=== PATIENT | male | born 1970 | race Caucasian/White ===

== ENCOUNTER → 2019-12-21 15:30 | Outpatient (CLI) | payer OTHER, SELFPAY ==
[2019-12-21 17:54] LABS: Absolute Lymphocyte Count 1.88 X10^3/uL (0.83-4.51); Absolute Neutrophil Count 10.7 X10^3/uL (2.0-7.7); Basophil# 0.03 X10^3/uL; Basophil% 0.2 % (0-1); Eosinophil# 0.04 X10^3/uL; Eosinophils% 0.3 % (0-5); Hematocrit 48.8 % (40-54); Hemoglobin 15.6 g/dL (13.0-16.5); Lymphocyte # 1.88 X10^3/ul (4.0); Lymphocyte % 13.9 % (19-41); Mean Corpuscular Hgb 29.1 pg (27.0-32.0); Mean Corpuscular Volume 90.9 fL (80-94); Mean Platelet Vol. 10.3 fl (6.2-12.0); Monocyte# 0.82 X10^3/uL; Monocyte% 6.1 % (0-10); NRBC Flagged by Analyzer 0 % (0-5); Neutrophil # 10.71 X10^3/uL (2.7-7.7); Neutrophil % 79.1 % (47-70); Platelet Count 340 K/mm3 (150-450); RBC Distribution Width CV 13.3 % (11.6-14.6); RBC Distribution Width SD 44.7 fl (35.1-43.9); Red Blood Count 5.37 M/mm3 (4.6-6.2); White Blood Count 13.5 K/mm3 (4.4-11.0)
[2019-12-21 18:56] LABS: Anion Gap 7 (5-15); BUN 24 mg/dL (7-18); BUN/Creat Ratio 19.7 RATIO (10-20); CRP < 2.90 mg/L (0.0-3.0); Calcium,Total 8.8 mg/dL (8.5-10.1); Chloride 107 mmol/L (98-107); Creatinine, Serum 1.22 mg/dL (0.70-1.30); EST Glomerular Filtration Rate 68 mL/min (>60); Est Glom Filt Rate - Afr Amer 82 mL/min (>60); Glucose 98 mg/dL (74-106); Potassium 3.6 mmol/L (3.5-5.1); Sodium Level 141 mmol/L (136-145)
== END ==
PROVIDERS: PCP Family Medicine; Referring Provider Family Medicine; Visit Provider Family Medicine
DX: I10 Essential (primary) hypertension (principal); R59.0 Localized enlarged lymph nodes
CPT/HCPCS: 36415; 80048; 85025; 86140

== ENCOUNTER → 2020-01-20 15:38 | Outpatient (CLI) | payer OTHER, SELFPAY | PROVIDERS: PCP Family Medicine; Visit Provider Otolaryngology | DX: Z11.59 Encounter for screening for other viral diseases (principal) | CPT/HCPCS: 87635; C9803; U0003 ==

== ENCOUNTER → 2020-01-20 15:49 | Outpatient (CLI) | payer OTHER, SELFPAY ==
[2020-01-20 16:20] LABS: Hematocrit 46.4 % (40-54); Hemoglobin 15.3 g/dL (13.0-16.5); Mean Corpuscular Hgb 29.7 pg (27.0-32.0); Mean Corpuscular Volume 89.9 fL (80-94); Mean Platelet Vol. 9.3 fl (6.2-12.0); Platelet Count 339 K/mm3 (150-450); RBC Distribution Width CV 13.3 % (11.6-14.6); RBC Distribution Width SD 43.8 fl (35.1-43.9); Red Blood Count 5.16 M/mm3 (4.6-6.2)
[2020-01-20 16:42] LABS: Anion Gap 4 (5-15); BUN 23 mg/dL (7-18); BUN/Creat Ratio 21.3 RATIO (10-20); Calcium,Total 9.2 mg/dL (8.5-10.1); Chloride 107 mmol/L (98-107); Creatinine, Serum 1.08 mg/dL (0.70-1.30); EST Glomerular Filtration Rate 78 mL/min (>60); Est Glom Filt Rate - Afr Amer 94 mL/min (>60); Glucose 84 mg/dL (74-106); Potassium 3.8 mmol/L (3.5-5.1); Sodium Level 140 mmol/L (136-145)
== END ==
PROVIDERS: PCP Family Medicine; Visit Provider Otolaryngology
DX: Z01.818 Encounter for other preprocedural examination (principal)
CPT/HCPCS: 36415; 80048; 85027

== ENCOUNTER → 2020-01-25 15:34 | Outpatient (CLI) | payer OTHER, SELFPAY ==
--- NOTE | 2020-01-25 | IMM_PTH ---
PATIENT: TAHMINA LEDESMA Jr. LOC: [facility] U#:[id number] AGE/SX: 54/M ROOM: RE01/25/[address]: Dr. Pawan Zhang MD : 1970 BED: DIS: SPEC #: [id number] RECD: 01/27/20 13:22 STATUS: ORACIO REQ #: [id number] EDMUNDO: 01/25/20 00:[address]: Pawan Zhang DEPT: IMMUNOHISTOCHEMISTRY RECD BY: Galilea Rubalcava ENTERED: 01/27/20 13:24 SP TYPE: IMMUNO OTHR DR: Dr. Chad Farfan MD Tissues: Nasopharynx, NOS Procedures: NAPSIN A (add) CD20 (add) CD3 (add) CD45 (add) CD5 (add) CD79A (add) CK14 (add) CK20 (add) CK5-6 (add) CK7 (add) CK8 (add) OROZCO-2 (add) KI-67 (add) P16 (add) P53 (add) TTF1 (add) Pankeratin (initial) P40 (add) CD44 (add) PSAP (add) S-100 (add) PHYSICIAN & [place] [id number] SPECIMEN INFORMATION: Tissue Source: B - Nasopharyngeal mass Clinical Info: Nasopharyngeal mass Specimen Number: [id number] CPT code: 78809, 77948 x20 METHODOLOGY: Deparaffinized sections of prefer/formalin-fixed tissue or PAP/DQ stained slides are incubated with monoclonal/polyclonal antibodies/oligonucleotide probes. Localization is made via biotin free immunoperoxidase method. Appropriate controls are performed and reacted as expected. Results on target cell population are indicated in the following table: RESULTS: ANTIBODY / CLONE RESULT Block B AE1-3 (AE1/AE3/PCK26) positive CK7 (OV-TL12/30) negative CK8 (44nlylQ77) positive, dim CK20 (KS20.8) negative OROZCO-2 (SP21) positive CD3 (PS1) negative CD5 (SP10) negative CD20 (L26) negative CD45 (RP2/18) negative CD79a (11E3) negative S-100 (4C4.9) negative TTF-1 (8G7G3/1) negative Napsin A (Rabbit Polyclonal) negative PSAP (PASE/4LJ) negative anti-CD44 (SP37) negative CK5-6 (D5 & 1684) positive CK14 (LL002) negative P40 (BC28) negative P16 (E6H4) negative P53 (DO-7) positive, 10%, dim Ki-67 (30-9) positive, 85% These tests were developed and their performance characteristics determined by [facility]. They may not have been cleared or approved by the U.S. Food and Drug Administration. The FDA has determined that such clearance or approval is not necessary. The above immunohistochemical/dualISH markers are ordered and reviewed by the Pathologist. 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 AM:vin 01/28/20 Case has been reviewed in consultation with Dr. Erickson who concurs with the above diagnosis. IDC:SJ
--- NOTE | 2020-01-25 14:02 | MASS_PTH ---
PATIENT: TAHMINA LEDESMA Jr. LOC: [facility] U#:[id number] AGE/SX: 54/M ROOM: RE01/25/[address]: Dr. Pawan Zhang MD : 1970 BED: DIS: SPEC #: [id number] RECD: 01/25/20 15:00 STATUS: ORACIO CHRISTINE #: [id number] EDMUNDO: 01/25/20 14:[address]: Pawan Zhang DEPT: SURGICAL PATHOLOGY RECD BY: Rey Sue ENTERED: 01/26/20 10:05 SP TYPE: Mass OTHR DR: Dr. Chad Farfan MD [facility] Tissues: A - Nasopharynx, NOS B - Nasopharynx, NOS Procedures: Special Stain Group II Surgery Specimen Level IV Imprint (control) HEADER OPERATION: Left myringotomy with tube, nasopharyngeal biopsy PRE-OP DIAGNOSIS: Chronic serous otitis media left ear; nasopharyngeal mass TISSUE SUBMITTED: A - Nasopharyngeal mass (sent for flow), B - Nasopharyngeal mass MICROSCOPIC DIAGNOSIS A. Nasopharyngeal mass, biopsy (crush prep): Positive for malignant cells, non-small cell carcinoma with squamoid features in the background of polytypic lymphocytes. See comment. B. Nasopharyngeal mass, biopsy: Invasive poorly differentiated, nonkeratinizing squamous cell carcinoma. See comment. AM:vin 01/27/20 COMMENT A. The remainder of the specimen is sent for flow cytometry analysis. B. Immunohistochemistry ([id number]) supports the above diagnosis. Case has been reviewed in consultation with Dr. Erickson who concurs with the above diagnosis. IDC:SJ MICROSCOPIC DESCRIPTION Slides are reviewed. GROSS DESCRIPTION Received in fixative is one container labeled with the patient's name and designated nasopharyngeal mass. The specimen consists of multiple irregular fragments of pink-stinson soft tissue that in aggregate measure 2.2 x 1.3 x 0.2 cm. A portion of the tissue is submitted for flow cytometry analysis. Sound Designer touch preps are prepared. The remainder of the specimen is submitted in its entirety in one cassette. / AM:vin 01/26/20 TC:0 CPT: 04299, 24721 x2 ADDENDUM ADDENDUM ADDENDUM ADDENDUM ADDENDUM ADDENDUM ADDENDUM 01/29/2020 11:12 ADDENDUM 01/29/2020 11:12 ADDENDUM 01/29/2020 11:12 ADDENDUM 01/29/2020 11:12 ADDENDUM 01/29/2020 11:12 FLOW CYTOMETRY ANALYSIS REPORT FROM [facility] INTERPRETATION: (Specimen A) In the sample analyzed, there is no evidence of a B-cell or T-cell nonHodgkin lymphoma. Please see complete report in e-chart or EMR for further details
== END ==
PROVIDERS: PCP Family Medicine; Referring Provider Otolaryngology; Visit Provider Otolaryngology
DX: H66.92 Otitis media, unspecified, left ear (principal)
CPT/HCPCS: 88300; 88305; 88313; 88341; 88342

== ENCOUNTER → 2020-02-08 13:10 | Outpatient (CLI) | payer OTHER, SELFPAY ==
--- NOTE | 2020-02-08 13:12 | CT_ITS ---
HISTORY: LEFT NASOPHARYNGEAL CANCER, BIOPSY 2 WKS AGO TECHNIQUE: CT images of the neck were obtained with IV contrast. A radiation dose optimization technique was used for this scan. IV Contrast dosage and agent: 75 mL Isovue-370 Number of images including paperwork: [id number] COMPARISON: None FINDINGS: NASOPHARYNX: Lobulated nasopharyngeal mass on the left side measuring approximately 3.6 x 2.3 cm on series 2 image 85. SUPRAHYOID NECK: Unremarkable oropharynx, oral cavity, parapharyngeal space, and retropharyngeal space. INFRAHYOID NECK: Unremarkable larynx, hypopharynx, and supraglottis. THYROID AND SALIVARY GLANDS: Normal. LYMPH NODES: Multiple enlarged left posterior triangle nodes, largest measuring 2.5 x 1.9 cm on series 2 image 61 and 2.7 x 1.6 cm on series 2 image 69. Small right cervical nodes are not pathologically enlarged by size criteria. VASCULAR STRUCTURES: Unremarkable. ORBITS: Unremarkable. PARANASAL SINUSES: No air fluid level. MASTOID AIR CELLS: Left mastoid effusion. BONES: Degenerative changes. THORACIC INLET: Clear lung apices. CT/Soft Tissue Neck WITH Contrast IMPRESSION: Left nasopharyngeal mass compatible with the provided history of nasopharyngeal carcinoma. Left neck metastatic adenopathy. Individualized dose optimization techniques were used for this CT. at 0641 Reported and signed by: Iraida Barnhart MD Electronically Signed: Iraida Barnhart MD at 6:41 EDT Tel , Service support ,
== END ==
PROVIDERS: PCP Family Medicine; Referring Provider Otolaryngology; Visit Provider Otolaryngology
DX: C11.9 Malignant neoplasm of nasopharynx, unspecified (principal)
CPT/HCPCS: 70491; Q9967

== ENCOUNTER → 2020-02-13 06:54 | Outpatient (CLI) | payer OTHER, SELFPAY ==
--- NOTE | 2020-02-13 07:30 | PET_ITS ---
EXAMINATION: FDG PET-CT INDICATIONS: A 49-year-old male with history of head and neck carcinoma presenting for initial staging examination. COMPARISON EXAMINATION: CT of the neck report dated 02/08/2020 INDEX LESION SIZE SUV INTERPRETATION Midline-L nasopharynx 31.6 x 20.4-mm (frame 273) 10.1 Fulfills quantitative criteria for viable neoplasm Left lateral neck level IIB-III 20.5 x 27.3-mm (largest) (frame 259) 11.0 (max) Fulfills quantitative criteria for viable neoplasm TECHNIQUE: Following the intravenous administration of 14.5 mCi of F-18 deoxyglucose via the left antecubital fossa, multiplanar image acquisitions of the neck, chest, abdomen and pelvis to level of mid thigh, obtained at one hour post radiopharmaceutical administration contemporaneously interpreted with the current CT of the neck, chest, abdomen and pelvis, to level of mid thigh, dated 02/13/[address] of the neck report dated 02/08/2020 reveals: BLOOD GLUCOSE LEVEL:?? 95 mg/dl?HEIGHT:?68 inches?WEIGHT: 250 lbs. FINDINGS: 1. There is an increase in radiopharmaceutical concentration defined in the nasopharynx in the midline-to the left of the midline. The calculated maximal standard uptake value is 10.1. The maximal axial diameter of the metabolic, morphologic abnormality on review of CT of the neck dated 02/13/2020 is 31.6-mm (transverse) x 20.4-mm (AP). 2. Facilitated FDG distribution is manifest in the left lateral neck involving level IIB-III in three individual nodular presentations. The calculated maximal standard uptake value is 11.0. The maximal axial diameter of the corresponding metabolic, morphologic abnormality on review of CT of the neck dated 02/13/2020 is 20.5-mm (transverse) x 27.3-mm (AP). 3. Normal physiologic distribution of the radiopharmaceutical is apparent in the hepatic (2.6) and splenic parenchyma, right renal unit, bladder and visualized intestinal tract. The visualized portion of the cerebral cortex demonstrate symmetric and preserved glucose metabolism. Diffuse radiopharmaceutical concentration is noted in all four quadrants of the abdomen and pelvis. Prominent radiopharmaceutical concentration is observed in the distribution of the left ventricular myocardium commensurate with the pattern associated with failure to fast-fed state. (Frandy and Melissa, Journal of Nuclear Medicine Technology 31:3, 2003). Pertinent CT findings are as follows: CHEST: There is atherosclerotic calcification defined in the thoracic aorta without evidence of dilatation-aneurysm formation. Coronary arterial calcification is observed. Bilateral axillary soft tissue densities with fatty hilus are ametabolic. There are no parenchymal densities-nodules defined in the right and left hemithorax with discernible quantitatively significant increased FDG concentration. A linear density defined in the left lower anterior lung-left upper lobe is ametabolic. ABDOMEN AND PELVIS: There is atherosclerotic calcification defined in the abdominal aorta without evidence of dilatation-aneurysm formation. Pelvic arterial calcification is observed. The left kidney appears definitively atrophic with calcification. A fat containing paraumbilical hernia is noted. Bilateral fat containing inguinal hernias are defined. Dystrophic calcification is manifest within the prostate gland without evidence of increased tracer uptake. SKELETAL: Degenerative changes are noted in the cervical, thoracic and lumbar spine. PET/PET/CT Tumor Base -Thigh Init IMPRESSION: 1. ABNORMAL EXAMINATION INDICATIVE OF [id number] VIABLE NEOPLASM. 2. Increased FDG distribution noted in the nasopharynx fulfills quantitative criteria for viable neoplasia. 3. Enhanced fluorine labeled glucose uptake discerned in the left lateral neck involving level IIB-III fulfills quantitative criteria for viable metastatic disease. 4. No other quantitatively significant hypermetabolic abnormalities are noted. There is no definitive scintigraphic evidence of distant metastatic disease. Electronic Signature Angel Montano D.O. Accurate Quantification of SUVs for this report are calculated using the exclusive [employer]. Electronically Signed: Angel Montano DO at 22:48 EDT Tel , Service support ,
== END ==
PROVIDERS: PCP Family Medicine; Referring Provider Otolaryngology; Visit Provider Otolaryngology
DX: C11.2 Malignant neoplasm of lateral wall of nasopharynx (principal)
CPT/HCPCS: 78815; A9552

== ENCOUNTER → 2020-03-04 09:41 | Outpatient (CLI) | payer OTHER, SELFPAY ==
--- NOTE | 2020-03-04 09:49 | MRI_ITS ---
STUDY: MRI BRAIN WITH AND WITHOUT CONTRAST REASON FOR EXAM: Male, 49 years old. MALIGNANT NEOPLASM OF NASOPHARYNX, no neuro complaints, staging TECHNIQUE: Standardized multiplanar fat and water weighted pulse sequences were obtained. IV 23CC DOTAREM was administered for the contrast portion of the examination. COMPARISON: None. FINDINGS: Normal size of the ventricles and extra-axial spaces for the patient''s age. Normal white matter tracts of the supratentorial brain. There is no evidence for recent intracranial ischemia or other cause of cytotoxic edema on diffusion weighted imaging (DWI). Normal T2* images of the brain without demonstrated susceptibility artifact. There is no demonstrated hemosiderin stain. Normal bilateral basal ganglia. Normal thalami. There is no extra-axial fluid accumulation. Normal flow voids within the major intracranial circulation suggesting patency by spin echo criteria. Normal venous enhancement. There is no enhancing intra-axial or extra-axial abnormality. Normal sella turcica, pituitary gland, infundibular stalk, optic chiasm and hypothalamus. Normal tectal plate and pineal gland. Normal midbrain, ridge and medulla. Normal cerebellum. Normal basal cisterns. There is moderate chronic otomastoiditis of the bilateral temporal bones. Normal bilateral internal auditory canals. No demonstrated orbital abnormality, within the constraints of a routine brain study. Normal visualized paranasal sinuses. Normal calvarium and skull base. 1.5 x 2.5 cm solidly enhancing mass of the left posterior nasopharynx consistent with known head and neck cancer. Normal visualized upper cervical spine. MRI/Brain W/WO Contrast IMPRESSION: Normal unenhanced and enhanced MRI of the brain. No MR evidence metastatic disease. Electronically Signed: Angel Daley MD at 14:58 EST Tel , Service support ,
== END ==
PROVIDERS: PCP Family Medicine; Referring Provider Internal Medicine Hematology & Oncology; Visit Provider Internal Medicine Hematology & Oncology
DX: C11.9 Malignant neoplasm of nasopharynx, unspecified (principal)
CPT/HCPCS: 70553; A9575

== ENCOUNTER 2020-06-06 10:15 | Emergency (ER) | payer OTHER, SELFPAY ==
[2020-06-06 10:15] VITALS: BP 110/92; PULSE 115; RESP 18; TEMP 36.6; O2SAT 98; BMI 29.5
--- NOTE | 2020-06-06 10:29 | EKG12_ITS ---
Test Reason : DIZZINESS Blood Pressure : / mmHG Vent. Rate : 104 BPM Atrial Rate : 104 BPM P-R Int : 130 ms QRS Dur : 102 ms QT Int : 340 ms P-R-T Axes : 059 -11 121 degrees QTc Int : 447 ms Sinus tachycardia T wave abnormality, consider lateral ischemia Abnormal ECG Confirmed by MARILYN HACKETT, LORA ([id number]), medical transcription editor MERLE PATINO ([id number]) on 06/09/2020 9:25:36 AM Referred By: AN Confirmed By:LORA SANDERS MD
--- NOTE | 2020-06-06 10:31 | ED.VIS.GEN ---
History of Present Illness Chief Complaint: Syncope Informant: Patient Narrative: 49-year-old male presents with concern for weakness. Patient recently completed a course of chemotherapy for nasopharyngeal cancer 4 weeks ago. Patient was diagnosed with coronavirus 1 week ago. Patient states that he had 3 episodes of syncope yesterday. Did describe him as bending over and then standing up and having syncope. States he becomes profoundly short of breath anytime he exerts himself. Denies any chest pain, nausea, vomiting, abdominal pain. 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 Denies: Chills, Fever, Sweats Eyes: Denies: Visual changes - bilaterally, Diplopia ENT: Denies: Rhinorrhea, Sore throat Cardiovascular: Denies: Chest pain, Palpitations Respiratory: Denies: Dyspnea, Cough, Dyspnea on exertion Gastrointestinal: Denies: Abdominal pain, Nausea, Vomiting, Diarrhea, Melena, Hematochezia Genitourinary: Denies: Dysuria, Hematuria, Frequency Musculoskeletal: Denies: Back pain, Extremity Pain Skin: Denies: Rash, Wounds Neurological: Denies: Headache, Weakness, Numbness Physical Exam Vital Signs/Narrative: Vital Signs Temp Pulse Resp BP Pulse Ox 06/06/20 10:15 98 F 115 H 18 110/92 H 98 General: Well nourished, Well developed, No Acute Distress Head: Normocephalic, Atraumatic Eyes: Perrl, EOMI ENT: Moist mucous membranes, No rhinorrhea Neck: Supple, Nontender Cardiovascular: Regular rate, Regular rhythm, No murmurs Respiratory: No distress, CTA bilaterally, Chest nontender Abdomen: Soft, Nontender, Nondistended, Normal bowel sounds Back: Nontender, Normal Inspection Extremities: Nontender, No edema Skin: Normal color, No rash Neurological: Alert, Oriented x3, Cranial nerves II-XII grossly intact, Normal Strength, Normal Sensation Psychological: Normal affect, Normal Mood Diagnostic/Tx/Re-eval Chest X-Ray - ED: 1 View, Read by ED Physician, Read by Radiologist, Normal Clinical Impression(s) from Imaging Studies Chest X-Ray 06/06/20 10:58 IMPRESSION: Hyperinflation. The lungs are clear. Electronically Signed: Trevor Tyson MD at 11:17 EST , Service support , Chest CTA 06/06/20 11:41 IMPRESSION: No evidence of pulmonary embolism. Mild degree of groundglass appearance in the right upper lobe as well as in the lower globes and the preferential lateral distribution. Electronically Signed: Trevor Tyson MD at 12:30 EST , Service support , Laboratory Data 06/06/20 06/06/20 06/06/20 11:13 11:13 11:13 WBC 9.7 RBC 3.84 L Hgb 11.8 L Hct 36.7 L MCV 95.6 H MCH 30.7 MCHC 32.2 RDW Std Deviation 71.3 H RDW Coeff of Luis 21.0 H Plt Count 230 MPV 10.3 Neut % (Auto) Not Reportable Absolute Neuts (auto) 8.8 H Absolute Lymphs (auto) 0.29 L Total Counted 100 Neutrophils % (Manual) 89 H Band Neutrophils % 1 Lymphocytes % (Manual) 3 L Monocytes % (Manual) 6 Metamyelocytes % 1 Diff Path Review May foll Platelet Estimate ADEQUATE Polychromasia RARE Hypochromasia RARE D-Dimer Quant (PE/DVT) 0.77 H* Sodium 138 Potassium 3.9 Chloride 105 Carbon Dioxide 26.0 Anion Gap 7 BUN 24 H Creatinine 1.27 Estim Creat Clear Calc 71.91 Est GFR (MDRD) Af Amer 78 Est GFR (MDRD) Non-Af 64 BUN/Creatinine Ratio 18.9 Glucose 96 Lactic Acid Calcium 8.9 Total Bilirubin 0.30 AST 42 H ALT 71 H Alkaline Phosphatase 132 H Troponin I < 0.015 Total Protein 7.0 Albumin 3.2 Globulin 3.8 Albumin/Globulin Ratio 0.8 L 06/06/20 11:34 WBC RBC Hgb Hct MCV MCH MCHC RDW Std Deviation RDW Coeff of Luis Plt Count MPV Neut % (Auto) Absolute Neuts (auto) Absolute Lymphs (auto) Total Counted Neutrophils % (Manual) Band Neutrophils % Lymphocytes % (Manual) Monocytes % (Manual) Metamyelocytes % Diff Path Review Platelet Estimate Polychromasia Hypochromasia D-Dimer Quant (PE/DVT) Sodium Potassium Chloride Carbon Dioxide Anion Gap BUN Creatinine Estim Creat Clear Calc Est GFR (MDRD) Af Amer Est GFR (MDRD) Non-Af BUN/Creatinine Ratio Glucose Lactic Acid 1.5 Calcium Total Bilirubin AST ALT Alkaline Phosphatase Troponin I Total Protein Albumin Globulin Albumin/Globulin Ratio - Rhythm Strip Rhythm Strip: Sinus Tach Rate: 104 Ectopy: None - EKG Initial EKG Interpretation: Sinus Tachycardia - Sinus tachycardia 104 bpm. [place] interval 130 ms. QTC of [address] changes. No evidence of acute ischemia. - Medical Decision Making Patient appears well and nontoxic. Chest x-ray interpreted by myself shows no significant cardiomegaly or infiltrate. Radiology concurs. Patient has a slightly elevated D-dimer. CTA of the chest was done which shows no pulmonary embolism. Patient is feeling improved after fluid bolus. Patient has no focal neurologic deficit. Patient symptoms are consistent with orthostatic hypotension given he is arising from a seated position or when he bends over he feels like he is going to pass out. Patient was advised on continued p.o. hydration and follow-up with his primary care. Asked to return for worsening shortness of breath. Patient agreeable and discharged home in stable condition. Impression: 1. COVID-19 2. Syncope 3. Volume depletion ED Disposition - Plan for ED Patient: Disposition: Home or Assisted Living Instructions: ED Hypotension, Orthostatic, ED Fainting, Uncertain Cause Referrals: Chad Farfan MD [Primary Care Provider] - 2 Days
--- NOTE | 2020-06-06 10:34 | NURSING ---
NO OLD EKGS
--- NOTE | 2020-06-06 10:58 | RAD_ITS ---
STUDY: X-RAY CHEST REASON FOR EXAM: Male, 49 years old. PT IS COVID POSITIVE. LETHARGIC AND SOB. CURRENTLY RECEIVING CHEMO TREATMENTS. TECHNIQUE: Single AP portable view of the chest. COMPARISON: None. FINDINGS: EKG electrodes are seen. Hyperinflation. The lungs are clear. There is no demonstrated pleural abnormality. Normal size heart. Normal mediastinum and trini. Normal visualized pulmonary arteries. Normal visualized aortic arch and descending thoracic aorta. There are diffuse degenerative changes of the visualized thoracic spine. Normal visualized ribs, clavicles, and shoulders. There is no demonstrated abnormality of the visualized soft tissue structures of the upper abdomen. RAD/Chest 1 View (Portable) IMPRESSION: Hyperinflation. The lungs are clear. Electronically Signed: Trevor Tyson MD at 11:17 EST , Service support ,
[2020-06-06 11:12] VITALS: BP 133/95; PULSE 91; PULSE 95; RESP 17; RESP 19; TEMP 36.7; O2SAT 96; O2SAT 99
[2020-06-06 11:27] LABS: Hematocrit 36.7 % (40-54); Hemoglobin 11.8 g/dL (13.0-16.5); Mean Corp Hgb Conc 32.2 g/dL (32-36); Mean Corpuscular Hgb 30.7 pg (27.0-32.0); Mean Corpuscular Volume 95.6 fL (80-94); Mean Platelet Vol. 10.3 fl (6.2-12.0); POSITIVE COUNT YES; POSITIVE DIFFERENTIAL YES; POSITIVE MORPHOLOGY YES; Platelet Count 230 K/mm3 (150-450); RBC Distribution Width SD 71.3 fl (35.1-43.9); Red Blood Count 3.84 M/mm3 (4.6-6.2); White Blood Count 9.7 K/mm3 (4.4-11.0)
[2020-06-06 11:28] LABS: Differential Indicated MANUAL DIFF
[2020-06-06 11:37] LABS: D-Dimer Quantitative (DVT/PE) 0.77 FEU/ug/m (0.27-0.49)
--- NOTE | 2020-06-06 11:37 | ED.RN ---
D-dimer 0.77. MD notified.
[2020-06-06 11:39] VITALS: BP 133/95; BP 137/95; BP 143/103; PULSE 105; PULSE 109; PULSE 90
--- NOTE | 2020-06-06 11:41 | CT_ITS ---
STUDY: CTA CHEST REASON FOR EXAM: Male, 49 years old. SYNCOPE, COVID+ RADIATION DOSAGE (If Supplied By Facility): CTDIvol = ( 12.69 ) mGy, DLP = ( 414.97 ) mGycm TECHNIQUE: The examination was performed with the intravenous administration of IV 100mL Isovue-370. Post-processing of the angiographic images was performed, with multiplanar reformation and 3D reconstruction. Individualized dose optimization techniques were used for this CT. COMPARISON: Comparison is made with prior chest radiograph done earlier today. FINDINGS: Normal enhancement of the main pulmonary artery and right and left pulmonary arteries. Normal enhancement of the bilateral peripheral pulmonary arteries. There is no demonstrated pulmonary embolism. Normal thoracic aorta and visualized great vessels. There is no demonstrated aortic dissection. Normal heart and pericardium. Normal mediastinum. Normal hilar regions. Normal visualized trachea and bronchi. The lungs are well expanded. Minimal degree of focal areas of a groundglass appearance in the right lung apex as well as both bases. This is in a peripheral distribution. Normal pleura. Normal chest wall structures. Normal osseous structures. Normal visualized upper abdomen. CT/CTA Chest W/WO Contrast IMPRESSION: No evidence of pulmonary embolism. Mild degree of groundglass appearance in the right upper lobe as well as in the lower globes and the preferential lateral distribution. Electronically Signed: Trevor Tyson MD at 12:30 EST , Service support ,
[2020-06-06 11:43] LABS: ALB/GLOB Ratio 0.8 RATIO (0.9-2.4); AST(SGOT) 42 U/L (15-37); Alanine Aminotransfer ALT/SGPT 71 U/L (16-61); Albumin, Serum 3.2 g/dL (3.2-5.0); Alkaline Phosphatase 132 U/L (45-117); Anion Gap 7 (5-15); BUN 24 mg/dL (7-18); BUN/Creat Ratio 18.9 RATIO (10-20); Calcium,Total 8.9 mg/dL (8.5-10.1); Chloride 105 mmol/L (98-107); Creatinine, Serum 1.27 mg/dL (0.70-1.30); EST Glomerular Filtration Rate 64 mL/min (>60); Est Glom Filt Rate - Afr Amer 78 mL/min (>60); Estimated Creatinine Clearance 71.91 ml/min; Globulin 3.8 g/dL (2.2-4.2); Glucose 96 mg/dL (74-106); Potassium 3.9 mmol/L (3.5-5.1); Sodium Level 138 mmol/L (136-145)
[2020-06-06 11:47] LABS: Hypochromasia RARE; Lymphocyte 3 % (19-41); Metamyelocyte 1 % (0-1); Monocyte 6 % (0-10); Neutrophil-Band 1 % (0-5); Neutrophil-Segmented 89 % (47-70); Platelet Estimate ADEQUATE (ADEQ); Polychromasia RARE; Total Cells Counted 100 (MANUAL DIFF)
[2020-06-06 11:48] LABS: Absolute Lymphocyte Count 0.29 X10^3/uL (0.83-4.51); Absolute Neutrophil Count 8.8 X10^3/uL (2.0-7.7)
[2020-06-06 12:27] LABS: Lactic Acid 1.5 mmol/L (0.4-1.9)
[2020-06-06] MEDS: 0.9% Normal Saline 1,000 ML 999 ML IV (12:31)
[2020-06-06 13:47] VITALS: BP 137/105; PULSE 79; PULSE 94; RESP 16; RESP 18; TEMP 36.6; O2SAT 100; O2SAT 99
[2020-06-07 12:52] LABS: Pathologist Review Reviewed
== END 2020-06-06 13:55 | disposition home or self-care (01) ==
PROVIDERS: Emergency Provider Emergency Medicine; PCP Family Medicine
DX: U07.1 COVID-19 (principal); R55 Syncope and collapse; E86.9 Volume depletion, unspecified; Z87.891 Personal history of nicotine dependence
CPT/HCPCS: 71045; 71275; 80053; 83605; 84484; 85025; 85379; 87040; 93005; 99285; J7030; Q9967; A4216

== ENCOUNTER 2020-07-01 09:13 | Day surgery (SDC) | payer OTHER, SELFPAY ==
[2020-06-29 15:52] VITALS: BMI 30.8
[2020-07-01] VITALS (9 sets, daily range): BP systolic 113–129; BP diastolic 83–98; PULSE 86–99; RESP 16–20; TEMP 36.6–37.9; O2SAT 96–99; BMI 30.7
[2020-07-01] MEDS: Lactated Ringers 1,000 ML 100 ML IV (10:30)
[2020-07-01] MEDS: Cefazolin 2 GM in 0.9% Normal Saline 100 ML IV (11:51)
[2020-07-01] MEDS: Lidocaine 1% (20 ml mdv) 20 ML Vial (12:19)
[2020-07-01] MEDS: Bupivacaine Mpf 0.5% 30 ML VIAL (12:19)
--- NOTE | 2020-07-01 12:33 | PCM.DC.POR ---
Discharge Diet: No Restrictions - Pain medication may cause nausea. You should typically eat light foods as you take your pain medication. Discharge Activity: May Shower - with the bandage in place 1-2 days after surgery. DO NOT SHOWER WHEN YOUR PORT IS ACCESSED. Additional Activity Instructions:: May not drive, work with heavy equipment, or sign legal documents for [address] if you are no longer taking narcotic pain medications. You may drive when you are no longer taking pain medications. Additional Dressing/Incision Instructions:: Leave the bandage on for 2-3 days. When you remove the bandage, leave the steri-strips intact until they fall off. Allergies/Adverse Reactions: Allergies No Known Allergies Allergy (Verified 07/01/20 10:35) Medications to take at Discharge Amlodipine Besylate [Norvasc] 5 mg PO QHS 06/28/20 Hydroxyzine HCl 50 mg PO QHS 06/28/20 Indapamide 1.25 mg PO DAILY 06/28/20 Irbesartan [Avapro] 300 mg PO QHS 06/28/20 Multivitamin with Minerals [Multiple Vitamin] 1 ea PO DAILY 06/28/20 potassium chloride 10 mEq tablet,extended release(part/cryst) 10 meq PO BID tab 06/29/20 tadalafil 10 mg tablet 10 mg PO DAILY PRN tab 06/29/20 Oxycodone HCl/Acetaminophen [Percocet 5/325] 1 - 2 tablet PO Q4H PRN PRN 6 Days #30 tablet 07/01/20 The following prescriptions were given: Oxycodone HCl/Acetaminophen [Percocet 5/325] 1 - 2 tablet PO Q4H PRN PRN 6 Days #30 tablet PRN Reason: Pain Transmission Status: Received by RAPHAEL MANZANARES-[address] [facility] Primary Care Physician: Chad Farfan MD [Primary Care Provider] - Test Results: Test results from this visit will be discussed in further detail at your follow-up appointment, if applicable. Please Follow Up With: Annalisa Quan - [phone] When: Please plan to follow up in 7 days in the office.
--- NOTE | 2020-07-01 12:35 | RAD_ITS ---
STUDY: X-RAY CHEST REASON FOR EXAM: Male, 49 years old. Line TECHNIQUE: Single AP portable view of the chest. COMPARISON: Comparison is made with prior study 06/06/2020. FINDINGS: A right-sided leonora catheter has been placed. The tip is in the midportion of the superior vena cava. The lungs are clear and expanded. Scattered calcified granulomas. There is no demonstrated pleural abnormality. Normal size heart. Normal mediastinum and trini. Normal visualized pulmonary arteries. Normal visualized aortic arch and descending thoracic aorta. There are diffuse degenerative changes of the visualized thoracic spine. Normal visualized ribs, clavicles, and shoulders. There is no demonstrated abnormality of the visualized soft tissue structures of the upper abdomen. RAD/Chest 1 View (Portable) IMPRESSION: The tip of the right portacatheter is in the midportion of the superior vena cava. Electronically Signed: Trevor Tyson MD at 12:55 EST , Service support ,
--- NOTE | 2020-07-01 12:35 | PCM.OPRPT ---
Problem List (1) Vascular catheter fitting or adjustment Status: Acute Report of Operation Date of Procedure: 07/01/20 Pre-Operative Diagnosis: Vascular fitting and adjustment Post-Operative Diagnosis: Same Surgery/Procedure Performed:: Placement of a right internal jugular Port-A-Cath Type of Anesthesia:: Local MAC Anesthesiologist: Chad Cano Estimated Blood Loss (mL): < 25 cc Fluids Replaced: 500 cc lr Description of Procedure: Patient was brought into the operating room. Placed in the supine position. Bed was turned down I ultrasound the neck to identify the internal jugular vein. I marked the neck and chest appropriately. The neck and chest were then sterilely prepped and draped in usual fashion. Local was injected into the neck. Seldinger's technique was used to gain access to the internal jugular vein guidewire was placed over the needle the needle was removed fluoroscopy was used to confirm proper placement. I injected local into the chest made an incision created a pocket for the port with use of electrocautery. Made a skin incision in the neck place the dilator and sheath over the guidewire removing the dilator and guidewire. Placed a single lumen catheter into the internal jugular vein removing the sheath. Used fluoroscopy to confirm proper length. I tunneled from the pocket created over the collarbone into the neck and brought the catheter down. I cut it appropriately placed the locking up on the catheter placed the port onto the catheter and secured the 2 with a locking hub. It flushed and irrigated well and was flushed with 5 cc of Hepflush. It was placed into the pocket and sutured with 2 sutures of 2-0 Prolene. My investigative assistant Viky Gee RN first assist then closed the incisions in layers Dermabond was applied sterile dressings were applied and the patient tolerated the procedure well. A chest x-ray was ordered.
== END 2020-07-01 13:36 | disposition home or self-care (01) ==
LOC: SDC 09:13 → AC 09:14
PROVIDERS: PCP Family Medicine; Referring Provider Surgery; Visit Provider Surgery
PROC: (CPT 36561; principal; 2020-07-01 11:30)
DX: Z45.2 Encounter for adjustment and management of vascular access device (principal); Z20.822 Contact with and (suspected) exposure to COVID-19; F41.9 Anxiety disorder, unspecified; F32.9 Major depressive disorder, single episode, unspecified; Q60.0 Renal agenesis, unilateral; I10 Essential (primary) hypertension; Z87.891 Personal history of nicotine dependence; Z79.891 Long term (current) use of opiate analgesic
CPT/HCPCS: 36561; 71045; 77001; 87426; C9803; J7120; C1788

== ENCOUNTER → 2020-10-25 13:52 | Outpatient (CLI) | payer OTHER, SELFPAY ==
[2020-07-01 10:37] VITALS: BMI 30.7
--- NOTE | 2020-10-25 14:00 | PET_ITS ---
EXAMINATION: FDG PET-CT INDICATIONS: A 50-year-old male with a history of head and neck carcinoma presenting for restaging examination. COMPARISON EXAMINATION: FDG PET CT study dated 02/13/20. TECHNIQUE: Following the intravenous administration of 14.0 mCi of F-18 deoxyglucose via the left antecubital fossa, multiplanar image acquisitions of the head, neck, chest, abdomen and pelvis to level of mid-thigh, lower extremities obtained at one hour post radiopharmaceutical administration contemporaneously interpreted with the current CT of the head, neck, chest, abdomen and pelvis to level of mid-thigh, lower extremities dated 10/25/20 via coregistration and FDG PET CT study dated 02/13/20 reveal: SERUM GLUCOSE LEVEL: 87 mg/dl. HEIGHT: 69 inches. WEIGHT: 190 lbs. FINDINGS: 1. There is no quantitative scintigraphic evidence of abnormal increased glucose metabolism on meticulous inspection of whole body acquisitions to include all three axis reconstructions. 2. Normal physiologic distribution of the radiopharmaceutical is apparent in the hepatic and splenic parenchyma, right renal unit, bladder and visualized intestinal tract. The visualized portion of the cerebral cortex demonstrate symmetric and preserved glucose metabolism. Diffuse intestinal tract activity is noted throughout all four quadrants of the abdominal-pelvic retroperitoneum and mesentery consistent with normal physiologic distribution of the radiopharmaceutical. The prior defined metabolic abnormalities noted in the midline-left nasopharynx and left lateral neck described on the FDG PET CT study dated 02/13/20 are not visualized on the present examination. There is visualization of the Bapumwxm-Vvoo-O-Cath. Otherwise the previously defined morphologic-anatomic changes described on the prior FDG PET-CT report dated 02/13/20, are essentially unchanged on the current examination. PET/PET/CT Tumor Base -Thigh Subs IMPRESSION: 1. NEGATIVE EXAMINATION. There is no definitive quantitative scintigraphic evidence of recurrent-metastatic viable neoplasm. 2. There is interim resolution of the previously defined nasopharyngeal and left lateral neck hypermetabolic abnormalities. 3. Overall, compared to the prior FDG PET CT study dated 02/13/20, there is current absence of defined viable neoplastic disease with an interval quantitative complete metabolic response relating to all previously defined hypermetabolic abnormalities. Electronic Signature Angel Montano D.O. Accurate Quantification of SUVs for this report are calculated using the exclusive [employer]. ([place]. Patent No. [id number]). Standardization and correction of the FDG SUV metric via [employer] technology allow for vendor non-specific objective quantitative examination comparison and optimization of the sensitivity and specificity of the FDG PET-CT examination. Electronically Signed: Angel Montano DO at 22:28 EDT Tel , Service support ,
== END ==
PROVIDERS: PCP Family Medicine; Referring Provider Internal Medicine Hematology & Oncology; Visit Provider Internal Medicine Hematology & Oncology
DX: C11.2 Malignant neoplasm of lateral wall of nasopharynx (principal)
CPT/HCPCS: 78815; A9552

== ENCOUNTER → 2020-10-27 13:35 | Outpatient (CLI) | payer OTHER, SELFPAY ==
[2020-07-01 10:37] VITALS: BMI 30.7
[2020-10-27 18:04] LABS: Absolute Lymphocyte Count 1.01 X10^3/uL (0.83-4.51); Absolute Neutrophil Count 5.6 X10^3/uL (2.0-7.7); Basophil# 0.03 X10^3/uL; Basophil% 0.4 % (0-1); Eosinophil# 0.11 X10^3/uL; Eosinophils% 1.4 % (0-5); Hematocrit 37.8 % (40-54); Hemoglobin 12.3 g/dL (13.0-16.5); Lymphocyte # 1.01 X10^3/ul (0.83-4.51); Lymphocyte % 13.3 % (19-41); Mean Corp Hgb Conc 32.5 g/dL (32-36); Mean Corpuscular Hgb 32.4 pg (27.0-32.0); Mean Corpuscular Volume 99.5 fL (80-94); Mean Platelet Vol. 9.8 fl (6.2-12.0); Monocyte% 10.5 % (0-10); NRBC Flagged by Analyzer 0 % (0-5); Neutrophil # 5.63 X10^3/uL (2.7-7.7); Neutrophil % 74.1 % (47-70); Platelet Count 303 K/mm3 (150-450); RBC Distribution Width CV 14.3 % (11.6-14.6); RBC Distribution Width SD 52.5 fl (35.1-43.9); White Blood Count 7.6 K/mm3 (4.4-11.0)
[2020-10-27 18:56] LABS: ALB/GLOB Ratio 1.3 RATIO (0.9-2.4); AST(SGOT) 15 U/L (15-37); Alanine Aminotransfer ALT/SGPT 23 U/L (16-61); Alkaline Phosphatase 68 U/L (45-117); Anion Gap 6 (5-15); BUN 14 mg/dL (7-18); BUN/Creat Ratio 12.1 RATIO (10-20); Calcium,Total 9.6 mg/dL (8.5-10.1); Chloride 105 mmol/L (98-107); Creatinine, Serum 1.16 mg/dL (0.70-1.30); EST Glomerular Filtration Rate 71 mL/min (>60); Est Glom Filt Rate - Afr Amer 86 mL/min (>60); Free T3 2.8 pg/mL (2.18-3.98); Glucose 68 mg/dL (74-106); Magnesium 1.9 mg/dL (1.6-2.6); Potassium 4.7 mmol/L (3.5-5.1); Sodium Level 140 mmol/L (136-145); T4 Free Direct 1.05 ng/dL (0.76-1.46); Thyroid Stim Hormone (TSH) 2.14 uIU/mL (0.358-3.74)
== END ==
PROVIDERS: PCP Family Medicine; Visit Provider Family Medicine
DX: R53.83 Other fatigue (principal); I10 Essential (primary) hypertension
CPT/HCPCS: 36415; 80053; 83735; 84439; 84443; 84481; 85025

== ENCOUNTER 2022-12-10 10:31 | Day surgery (SDC) | payer OTHER, SELFPAY ==
--- NOTE | 2022-12-06 13:44 | EKG12_ITS ---
Test Reason : PRE OP Blood Pressure : / mmHG Vent. Rate : 087 BPM Atrial Rate : 087 BPM P-R Int : 146 ms QRS Dur : 102 ms QT Int : 368 ms P-R-T Axes : 063 -11 059 degrees QTc Int : 442 ms Normal sinus rhythm Normal ECG Confirmed by VIRAJ HACKETT, GRISELDA ([id number]), make up editor SREEDHAR CHRISTENSEN ([id number]) on 12/10/2022 8:31:51 AM Referred By: Yonathan Rojas Confirmed By:THERESA CALI MD
[2022-12-10 10:49] VITALS: BP 136/101; PULSE 83; RESP 18; TEMP 36.9; O2SAT 96; BMI 38.4
[2022-12-10] MEDS: Lactated Ringers 1,000 ML 15 ML IV (11:22)
--- NOTE | 2022-12-10 12:23 | HP.PCM_ITS ---
History and Physical Date of Admission: 12/10/22 Intake Vital Signs 12/03/2313:25 Weight: 263 lb BP 150/99 H Blood Pressure Location Rt brachial Position Sitting Respiration 17 Pulse 97 Pulse Source Monitor Temp 98 F Temp Source Temporal Pulse Oximetry (%) 95 Oxygen Delivery Method room air Intake Visit Reasons: Umbilical Hernia Chief Complaint: umbilical hernia Is patient in pain?: No Allergies No Known Allergies Allergy (Verified 12/03/22 14:26) Medications hydroxyzine HCl 25 mg tablet 50 mg PO QHS 06/28/20 [History Confirmed 12/03/22] irbesartan 300 mg tablet 300 mg PO QHS 06/28/20 [History Confirmed 12/03/22] multivitamin with minerals 1 ea PO DAILY 06/28/20 [History Confirmed 12/03/22] bupropion HCl 150 mg 24 hr tablet, extended release 150 mg PO QAM 12/03/22 [History Confirmed 12/03/22] trazodone 50 mg tablet 50 mg PO DAILY 12/03/22 [History Confirmed 12/03/22] [facility] Medical History (Updated 12/03/22 @ 16:[address] Yonathan Rojas MD) COVID-19 virus detected (05/30/20) Essential (primary) hypertension Malfunction of myringotomy tube Nasopharyngeal cancer Surgical History History of myringotomy Family History (Updated 12/03/22 @ 14:25 by Pratima Chung) Grandmother Heart disease Social History (Updated 12/03/22 @ 14:25 by Pratima Chung) Smoking Status: Former smoker alcohol intake: current alcohol intake frequency: a few times a week Alcohol type: beer substance use type: does not use HPI HPI HPI: Patient is a 52-year-old male here with umbilical hernia. He reports is been there about 2 months. He says he does not notice that it has been there any longer. He says it hurts with heavy lifting. He denies nausea or vomiting. ROS General General: No weight change, appetite, fatigue, colon cancer, breast cancer or weakness HEENT HEENT: No difficulty swallowing, eye injury, eye surgery, swollen glands or hoarseness Endo Endocrine: Yes thyroid disease; No diabetes mellitus, thyroid cancer, Hair loss, heat intolerance or cold intolerance Skin Skin: No rash or changing moles Musc Musculoskeletal: No back problems, arthritis, rheumatoid arthritis, gout or joint pain Cardio Cardiovascular: Yes high blood pressure; No murmur, pacemaker, heart disease, atrial fibrillation, heart attack, heart stent, palpitations, shortness of breat with exertion or chest pain Psych Psychiatric: No depression, anxiety or hearing voices Resp Respiratory: No shortness of breath, No sleep apnea, No cough, No COPD, No asthma, No emphysema and No wheezing Gastro Gastrointestinal: Yes abdominal pain, Yes nausea or vomiting, No diarrhea, No constipation, No blood in stool, No acid reflux, No hemorrhoids, No ulcers, No gallbladder problem and No black,tarry stools Len Hematologic: No blood thinners, No blood disorders, No bleeding, No anemia and No blood clots Neuro Neurologic: No system reviewed and no additional complaints, except as documented, No as per HPI, No abnormal gait, No abnormal hearing, No abnormal movements, No abnormal speech, No behavioral changes, No burning sensations, No confusion, No convulsions, No disequilibrium, No dizziness, No localized weakness, No frequent falls, No headache(s), No lack of coordination, No loss of vision, No memory loss, No numbness, No other visual disturbances, No radicular pain, No restless legs, No sensory deficit, No syncope, No tingling, No tremor(s), No weakness and No other Exam Const General: cooperative Orientation: alert and oriented x3 HENMT Head: normal to inspection Neck Neck: normal visual inspection and full ROM Chest Chest palpation & inspection: normal inspection of the chest Resp Effort & Inspection: normal respiratory effort Auscultation: clear to auscultation bilaterally Cardio Rate: regular rate Rhythm: regular rhythm GI Inspection: non-distended Palpation: soft, hernia umbilical and nontender Skin General: no rashes or lesions noted Neuro General: patient alert and patient oriented x3 Extrem General: full ROM Psych Appearance: grossly normal Mental Status: mental status grossly normal Assessment and Plan Assessment and Plan (1) Umbilical hernia: Status: Acute Qualifiers: Obstruction and gangrene presence: without obstruction or gangrene Qualified Code(s): K42.9 - Umbilical hernia without obstruction or gangrene Plan: Patient has a reducible umbilical hernia. I discussed open umbilical hernia repair with mesh. I discussed the risks including but not limited to bleeding, infection, injury to underlying organs. I also discussed recurrence risk as well as the mesh placement in detail. Patient understands the risks and is willing to proceed. Yonathan Rojas MD Pager: [facility] [address] [place] [address] [address] [place] [address] Office: I have examined the patient and the H&P has been reviewed. There are no clinical changes since date of exam.
[2022-12-10] MEDS: Cefazolin 2 GM in 0.9% Normal Saline 100 ML IV (12:30)
[2022-12-10] MEDS: Bupivacaine Mpf 0.5% 30 ML VIAL (12:52)
[2022-12-10 13:38] VITALS: BP 136/101; BP 142/101; PULSE 87; RESP 16; TEMP 37.5; O2SAT 97
[2022-12-10 13:45] VITALS: BP 136/101; BP 146/108; PULSE 86; RESP 16; O2SAT 94
--- NOTE | 2022-12-10 13:52 | PCM.OPRPT ---
Report of Operation Date of Procedure: 12/10/22 Pre-Operative Diagnosis: Umbilical hernia Post-Operative Diagnosis: Umbilical hernia 2 cm Surgery/Procedure Performed:: Umbilical hernia repair with mesh Type of Anesthesia: General/Regional Specimen's removed: None Estimated Blood Loss (mL): 5 Description of Procedure: Patient was brought back to the operating room and general anesthesia was induced. The abdomen was prepped and draped in usual sterile fashion. A curvilinear incision was marked inferior to the umbilicus and then injected with local anesthetic. Scalpel was used to make an incision and deepened it to the hernia sac. The umbilical stalk was removed from the hernia sac. Next the hernia sac was dissected free circumferentially the hernia sac was reduced and the preperitoneal space was dissected free to allow for mesh placement. A medium Ventralex ST mesh was placed in the preperitoneal space. It was sutured to the anterior fascia using 0 PDS suture. Next the area was irrigated and suctioned dry. The fascia was reapproximated using interrupted 0 Nurolon sutures. The fascial edges came together well. The subcutaneous tissue was irrigated and suctioned dry and the umbilical stalk was tacked to the fascia using 3-0 Vicryl suture. The skin was closed with interrupted 3-0 Vicryl sutures and then Steri-Strips and bandages were applied. Patient tolerated the procedure well. Grafts/Implants Used: Medium Ventralex ST mesh Admit VTE Documentation VTE Mechan Device Prophylaxis: SCD's
--- NOTE | 2022-12-10 13:55 | DCINST_ITS ---
Discharge Instructions Procedure Hernia Diet Discharge Diet: Light diet - advance as tolerated Activity Discharge Activity: May Not Drive (for 2-3 days or while taking narcotic pain meds.) and May Shower (with the bandage in place 1-2 days after surgery.) Lifting Restrictions: 20 pounds for 6 weeks. Additional Activity Instructions:: Climbing stairs is fine, walking is encouraged. Sitting in bed may be uncomfortable. Sitting up using your lateral muscles (sitting up sideways) is usually more comfortable. Do not drive, work heavy equipment of sign legal documents for 24 hours. Pain medications may cause nausea, you should typically eat light foods as you take your pain medications. Pain medications may also cause constipation. If you have difficulty with this, discuss with your doctor. Dressing / Incision Call your doctor if your incision/area has: Continuous Slow Oozing, Sudden Increased Bleeding, Increased Pain/ Swelling, Increased Redness and Foul Smelling Discharge Call your doctor if you observe: Fever of 101 or Higher Suture Line Care: Avoid Pulling/Pushing and Avoid Pinching/Bending Remove Dressing in: 2 days (Remove clear bandages in 2 days, remove Steri-Strips in 7 to 10 days.) Cleanse incision/area with: Soap & Water Follow Up Care Please Follow Up With: Yonathan Rojas MD When: Please call to schedule 2 week follow up appointment. [phone] Test Results: Test results from this visit will be discussed in further detail at your follow- up appointment, if applicable. Discharge Plan Admission Attending Provider: Yonathan Rojas Primary Care Provider: Chad Farfan Instructions Additional Instructions / Restrictions: Ibuprofen and Tylenol for pain, Percocet for breakthrough. Discharge Orders/Prescriptions Prescriptions: New oxycodone-acetaminophen [Percocet] 5-325 mg tablet 1 tab PO Q4H PRN (Reason: pain) 5 Days Qty: 15 0RF No Action bupropion HCl 150 mg tablet extended release 24 hr 150 mg PO QAM trazodone 50 mg tablet 50 mg PO DAILY hydroxyzine HCl 25 MG tablet 50 mg PO BID multivitamin with minerals 1 EACH tablet 1 ea PO DAILY irbesartan 300 MG tablet 300 mg PO QHS Other Ambulatory Orders: 12 Lead EKG (Routine) Timeframe: 20221206 Location: None Selected Ordered By: Dr. Armaan Calhoun Referrals / Follow Up: Chad Farfan MD [Primary Care Provider] - Disposition Disposition (needs filled in before D/C Order can be placed): Home, Self Care
[2022-12-10 14:00] VITALS: BP 136/101; BP 142/111; PULSE 87; RESP 18; O2SAT 95
[2022-12-10 14:15] VITALS: BP 136/101; BP 141/96; PULSE 91; RESP 18; TEMP 37.2; O2SAT 97
[2022-12-10] MEDS: Oxycodone/Apap 5/325 Tablet PO (14:22)
[2022-12-10 15:09] VITALS: BP 136/101; BP 142/99; PULSE 89; RESP 16; TEMP 36.8; O2SAT 96
== END 2022-12-10 15:12 | disposition home or self-care (01) ==
LOC: SDC 10:31 → AC 10:32
PROVIDERS: PCP Family Medicine; Referring Provider Surgery; Visit Provider Surgery
PROC: (CPT 49591; principal; 2022-12-10 12:20)
DX: K42.9 Umbilical hernia without obstruction or gangrene (principal); I10 Essential (primary) hypertension; F32.A Depression, unspecified; Z86.16 Personal history of COVID-19; Z79.899 Other long term (current) drug therapy; Z87.891 Personal history of nicotine dependence
CPT/HCPCS: 49591; 00750; 93005; C1781; J7120; J2405

== ENCOUNTER 2023-08-20 16:27 | Outpatient (CLI) | payer OTHER, SELFPAY ==
[2023-08-20 17:32] LABS: Absolute Lymphocyte Count 1.12 X10^3/uL (0.83-4.51); Basophil# 0.03 X10^3/uL; Basophil% 0.4 % (0-1); Eosinophil# 0.13 X10^3/uL; Eosinophils% 1.9 % (0-5); Hematocrit 45.6 % (40-54); Hemoglobin 15.1 g/dL (13.0-16.5); Lymphocyte # 1.12 X10^3/ul (0.83-4.51); Lymphocyte % 16.1 % (19-41); Mean Corp Hgb Conc 33.1 g/dL (32-36); Mean Corpuscular Hgb 29.1 pg (27.0-32.0); Mean Corpuscular Volume 87.9 fL (80-94); Mean Platelet Vol. 9.2 fl (6.2-12.0); Monocyte# 0.64 X10^3/uL; Monocyte% 9.2 % (0-10); NRBC Flagged by Analyzer 0 % (0-5); Neutrophil # 4.99 X10^3/uL (2.7-7.7); Neutrophil % 71.8 % (47-70); Platelet Count 267 K/mm3 (150-450); RBC Distribution Width CV 14.2 % (11.6-14.6); RBC Distribution Width SD 45.9 fl (35.1-43.9); Red Blood Count 5.19 M/mm3 (4.6-6.2)
[2023-08-20 18:46] LABS: Microalbumin,Random Urine 34.2 mg/L (NO RANGE EST.); Microalbumin:Creatinine Ratio 28.7 mg/g CRE (<30 mg/g CRE)
[2023-08-20 18:48] LABS: AST(SGOT) 29 U/L (15-37); Alanine Aminotransfer ALT/SGPT 54 U/L (16-61); Albumin, Serum 3.7 g/dL (3.2-5.0); Alkaline Phosphatase 107 U/L (45-117); Anion Gap 8 (5-15); BUN 11 mg/dL (7-18); Calcium,Total 8.8 mg/dL (8.5-10.1); Chloride 107 mmol/L (98-107); Creatinine, Serum 1.37 mg/dL (0.70-1.30); EST Glomerular Filtration Rate 58 mL/min (>60); Est Glom Filt Rate - Afr Amer 71 mL/min (>60); Globulin 3.7 g/dL (2.2-4.2); Glucose 86 mg/dL (74-106); Potassium 3.5 mmol/L (3.5-5.1); Protein, Total 7.4 g/dL (6.4-8.2); Sodium Level 139 mmol/L (136-145); T4 Free Direct 1.36 ng/dL (0.76-1.46); Thyroid Stim Hormone (TSH) 4.13 uIU/mL (0.358-3.74)
== END 2023-08-20 23:59 | disposition home or self-care (01) ==
PROVIDERS: PCP Family Medicine; Visit Provider Family Medicine
DX: I10 Essential (primary) hypertension (principal); G47.9 Sleep disorder, unspecified; E03.9 Hypothyroidism, unspecified
CPT/HCPCS: 36415; 80053; 82043; 82570; 84439; 84443; 85025

== ENCOUNTER → 2024-11-19 | Outpatient (CLI) | payer OTHER, SELFPAY ==
[2024-11-19 17:38] LABS: Hematocrit 48.5 % (40-54); Hemoglobin 15.9 g/dL (13.0-16.5); Immature Granulocytes Count 0.060 X10^3/uL (0.0-0.0); Mean Corp Hgb Conc 32.8 g/dL (32-36); Mean Corpuscular Volume 90.7 fL (80-94); Mean Platelet Vol. 9.3 fl (6.2-12.0); NRBC Flagged by Analyzer 0 % (0-5); Platelet Count 284 K/mm3 (150-450); RBC Distribution Width CV 14.2 % (11.6-14.6); RBC Distribution Width SD 47.2 fl (35.1-43.9); Red Blood Count 5.35 M/mm3 (4.6-6.2); White Blood Count 9.0 K/mm3 (4.4-11.0)
[2024-11-19 18:31] LABS: AST(SGOT) 29 U/L (<=37); Alanine Aminotransfer ALT/SGPT 40 U/L (<=46); Albumin, Serum 4.4 g/dL (3.5-5.0); Alkaline Phosphatase 106 U/L (40-129); Anion Gap 11 (5-15); BUN 16 mg/dL (4-19); BUN/Creat Ratio 9.2 RATIO (10-20); CORTISOL PM 4.64 ug/dL (2.68-10.50); Calcium,Total 9.4 mg/dL (7.6-11.0); Carbon Dioxide 26.3 mmol/L (21.0-32.0); Chloride 100 mmol/L (98-108); Free T3 2.8 pg/mL (2.18-3.98); Globulin 2.9 g/dL (2.2-4.2); Glucose 89 mg/dL (70-99); PSA,Total - Annual Screen 0.79 ng/mL (0.02-4.00); Potassium 4.3 mmol/L (3.3-5.1)
[2024-11-19 18:45] LABS: Creatinine, Urine (random) 330.00 mg/dL (39.00-259.00); Microalbumin,Random Urine 209.0 mg/L (<20 mg/L)
== END | disposition home or self-care (01) ==
LOC: MFPLAB 16:15
PROVIDERS: PCP Family Medicine; Referring Provider Family Medicine; Visit Provider Family Medicine
DX: I10 Essential (primary) hypertension (principal); E66.813 Obesity, class 3; Z68.41 Body mass index [BMI] 40.0-44.9, adult; J30.9 Allergic rhinitis, unspecified; E03.9 Hypothyroidism, unspecified; Z12.5 Encounter for screening for malignant neoplasm of prostate
CPT/HCPCS: 36415; 80053; 82043; 82533; 82570; 82627; 84153; 84439; 84443; 84481; 85025; 82626; G0103

== ENCOUNTER → 2024-12-02 | Outpatient (CLI) | payer OTHER, SELFPAY ==
--- NOTE | 2024-12-02 07:34 | RDU_ITS ---
Reason For Study Reason For Study: Increased creatinine/change in renal function Right Renal Artery Left Renal Dimensions Right renal artery ostium 115.6/37.8 Left renal agenesis. RSV/EDV. Right renal artery proximal 133.7/50.8 PSV/EDV. Right renal artery mid 62.8/28.5 PSV/EDV. Right renal artery distal 113.3/36.4 PSV/EDV. Right RAR 1.5. Right Renal Parenchyma Upper Pole Medula 47.1/22.5 PSV/EDV. Right upper pole medulla EDR 0.5 . Right upper pole medulla R.I. 0.52 . Upper Victor Manuel Cortx 19.4/10.2 PSV/EDV. Right upper pole cortex EDR 0.5 . Right upper pole cortex R.I. 0.47 . Right lower Pole medulla 40.2/16.0 PSV/EDV . Right lower pole medulla EDR 0.4 . Right lower pole medulla R.I. 0.60 . Lower Pole Cortex 21.2/12.0 PSV/EDV. Right lower pole cortex EDR 0.6 . Right lower pole cortex R.I. 0.43 . Right Renal Hilar Right Hilar avg 48.3/18.7 PSV/EDV. Right hilar acceleration time 70 m/sec. Right Renal Dimensions Right kidney size 13.95 cm . Right cortical dimension 2.52 cm . Aorta Proximal abdominal aorta 2.49x2.59 cm . Proximal abdominal aorta peak systolic velocity is 83.0 cm/sec . Distal abdominal aorta 1.49x1.67 cm . Distal abdominal aorta peak systolic velocity is 91.6 cm/sec . VL/Renal Artery Duplex Ultrasound Interpretation Summary Right renal artery patent with normal velocities and no evidence of stenosis. Right renal vein patent. Right kidney normal in size. Left kidney absent. Ordering Physician: Chad Farfan Referring Physician: Chad Farfan Performed By: Markie, Lisa, RVT
== END | disposition home or self-care (01) ==
PROVIDERS: PCP Family Medicine; Referring Provider Family Medicine; Visit Provider Family Medicine
DX: N18.32 Chronic kidney disease, stage 3b (principal)
CPT/HCPCS: 93975